=== PATIENT | female | born 1950 | race Caucasian/White ===

== ENCOUNTER 2018-06-20 07:36 | Inpatient (IN) | payer BC, MEDICARE ==
[~2018-06-20] VITALS: Ht 154.9 cm; Wt 66.8 kg
[~2018-06-20 07:36] MED LIST: FLONASE; LOPRESSOR; PRILOSEC; SYNTHROID
[2018-06-20] MEDS ORDERED: ASPIRIN 81 MG CHEW TAB PO ONE (08:00)
[2018-06-20 08:19] LABS: BASOPHILS % 0.2 % (0.0-1.0); EOSINOPHILS % 0.1 % (0.0-6.0); HEMOGLOBIN 14.4 g/dL (12.0-16.0); LYMPHOCYTES # (AUTO) 0.5 (1.0-3.2); LYMPHOCYTES % 3.1 % (18.0-39.1); MEAN CORPUSCULAR HEMOGLOBIN 30.6 pg (28-32); MEAN CORPUSCULAR HGB CONC 33.5 g/dL (31-35); MEAN CORPUSCULAR VOLUME 91.5 fL (81-99); MONOCYTES # (AUTO) 1.1 (0.2-0.8); MONOCYTES % 6.3 % (4.4-11.3); NEUTROPHILS # (AUTO) 15.7 (2.1-6.9); NEUTROPHILS % 89.9 % (38.7-80.0); PLATELET COUNT 213 x10e3/uL (140-360); RED CELL DISTRIBUTION WIDTH 13.7 % (11.7-14.4)
[2018-06-20 08:23] LABS: INR 1.02; PROTHROMBIN TIME 12.6 seconds (11.9-14.5)
[2018-06-20] MEDS ORDERED: MORPHINE SULFATE 2 MG/ML SYR IV STA (08:23)
[2018-06-20] MEDS ORDERED: ONDANSETRON HCL INJ 2 MG/ML VIAL IV STA (08:23)
[2018-06-20 08:24] LABS: PARTIAL THROMBOPLASTIN TIME 31.2 seconds (23.8-35.5)
[2018-06-20] MEDS ORDERED: MULTAQ400 MG PO (08:29)
[2018-06-20] MEDS ORDERED: OMEPRAZOLE40 MG PO (08:29)
[2018-06-20] MEDS ORDERED: LEVOTHYROXINE75 MCG PO (08:29)
[2018-06-20] MEDS ORDERED: TOPROL XL50 MG PO (08:29)
[2018-06-20 08:34] LABS: ALANINE AMINOTRANSFERASE 528 IU/L (0-55); ALBUMIN 4.4 g/dL (3.5-5.0); ALBUMIN/GLOBULIN RATIO 1.3 (0.8-2.0); ALKALINE PHOSPHATASE 142 IU/L (40-150); AMYLASE 2078 U/L (25-125); ANION GAP 17.8 mmol/L (8-16); BLOOD UREA NITROGEN 14 mg/dL (7-26); BUN/CREATININE RATIO 16 (6-25); CALCIUM 9.9 mg/dL (8.4-10.2); CARBON DIOXIDE 21 mmol/L (22-29); CHLORIDE 103 mmol/L (98-107); CREATINE KINASE 78 IU/L (29-168); CREATININE, SERUM 0.89 mg/dL (0.57-1.11); EST GLOMERULAR FILTRATION RATE > 60 ML/MIN (60-); GLUCOSE 118 mg/dL (74-118); POTASSIUM 3.8 mmol/L (3.5-5.1); SODIUM 138 mmol/L (136-145)
[2018-06-20 09:18] LABS: LIPASE > 4800 U/L (8-78)
[2018-06-20] MEDS ORDERED: SODIUM CHLORIDE 0.9% 1000ML 1,000 ML IV SCH ×2 (10:15→10:24)
[2018-06-20] MEDS: SODIUM CHLORIDE 0.9% 1000ML 1,000 ML IV SCH ×2 (10:53→19:45)
--- NOTE | 2018-06-20 11:59 | Diagnostic Imaging Report ---
EXAM: Right upper quadrant abdominal ultrasound INDICATION: Right upper quadrant pain COMPARISON: None. TECHNIQUE: Transverse and longitudinal images of the right upper quadrant abdomen were obtained FINDINGS: Liver: Size: Measures 16.1 cm in the right midclavicular line Appearance: Normal echogenicity, smooth contour Mass: No focal masses Gallbladder: No evidence of wall thickening, stone, or distension. Gallbladder wall measures 0.2 cm. Negative reported sonographic Ferreira's sign. Bile Ducts: Intrahepatic Ducts: No dilatation Extrahepatic Ducts: Common bile duct measures 1 cm. No visualized stone. Pancreas: The visualized pancreas appears edematous. Kidney: The right kidney measures 10.1 cm without evidence of hydronephrosis or stone. Vessels: Aorta: Visualized portions are normal Inferior Vena Cava: Visualized portions are normal Main Portal Vein: 1.2 Cm, normal size with hepatopetal flow. Free Fluid: No ascites or pleural effusion IMPRESSION: Edematous pancreas, consistent with clinical history of pancreatitis. Dilated common bile duct measuring up to 1 cm without evidence of stone. MRCP may be considered for further evaluation. Signed by: Dr. Jonathan Whatley MD on 06/20/2018 11:55 AM
[2018-06-20] MEDS ORDERED: HYDROMORPHONE 1MG/1ML INJ IV PRN (12:00)
--- NOTE | 2018-06-20 12:18 | Diagnostic Imaging Report ---
PROCEDURE: A single AP view of the chest. COMPARISON: None. INDICATIONS: STOMACH/EPIGASTRIC PAIN FINDINGS: Lines/tubes: None. Lungs: Low lung volumes. Patchy bibasilar opacities, left greater than right. No evidence of pulmonary edema. Pleura: There is no pleural effusion or pneumothorax. Heart and mediastinum: The cardiomediastinal silhouette is unremarkable. Bones: No acute bony abnormality. Upper abdomen: No evidence of free air under the hemidiaphragms. IMPRESSION: Low lung volumes with patchy bibasilar opacities, left greater than right likely atelectasis. Pneumonia is possible in the appropriate clinical setting. Dictated by: BRUNO SONG M.D. on 06/20/2018 at 8:57 Electronically approved by: BRUNO SONG M.D. on 06/20/2018 at 8:57
[2018-06-20 12:32] LABS: COLOR,URINE YELLOW (YELLOW)
[2018-06-20 12:33] LABS: BACTERIA,URINE FEW /HPF; BILIRUBIN,URINE NEGATIVE (NEGATIVE); CLARITY,URINE SL CLOUDY (CLEAR); EPITHELIAL CELLS,URINE RARE /LPF; KETONES,URINE NEGATIVE (NEGATIVE); LEUKOCYTE ESTERASE ,URINE NEGATIVE (NEGATIVE); NITRITE,URINE NEGATIVE (NEGATIVE); PROTEIN,URINE DIPSTICK TRACE (NEGATIVE); URINE UROBILINOGEN 1 mg/dL (0.2 - 1)
[2018-06-20 12:34] LABS: MUCUS,URINE MANY (RARE)
[2018-06-20] MEDS: HYDROMORPHONE 2MG/ML 2 MG/ML ML IV PRN ×2 (13:02→20:08)
[2018-06-20] MEDS: SODIUM CHLORIDE 0.45% 1,000 ML IV SCH ×2 (13:02→19:15)
[2018-06-20 13:10] VITALS: BP 159/89
--- NOTE | 2018-06-20 13:55 | History and Physical ---
CHIEF COMPLAINT: Abdominal pain going through to the back. HISTORY OF PRESENT ILLNESS: The patient has a history of cholelithiasis, atrial fibrillation, and thyroid disease. Yesterday, she developed some epigastric pain that radiated through to her back. She had some nausea. She did not describe any fevers. The patient came to the emergency department, was found to have an elevated amylase and an elevated lipase consistent with pancreatitis. She received some IV fluids along with some pain medication. PAST MEDICAL HISTORY 1. Possible atrial fibrillation. She follows with Dr. Linder of cardiology and he has been treating her with Muna. 2. Thyroid disease. PAST SURGICAL HISTORY: Noncontributory. SOCIAL HISTORY: No alcohol use. Patient is not a smoker. ALLERGIES: NO KNOWN DRUG ALLERGIES. FAMILY HISTORY: Noncontributory. REVIEW OF SYSTEMS: No fevers. No headache. No neck pain. The patient did have some epigastric pain and possibly some chest pain. She does not have dyspnea. There is associated nausea, but no vomiting. She does not have any leg edema. There are no neurological complaints. PHYSICAL EXAMINATION VITAL SIGNS: The patient is afebrile. The vital signs are stable. HEENT: Shows no facial swelling or erythema. The nasal mucosa is normal. The oropharynx is normal. LYMPHATIC: Shows no submandibular, cervical, or supraclavicular adenopathy. CARDIAC: Reveals a regular rate and rhythm with normal S1 and S2. There are no murmurs or rubs. RESPIRATORY: Auscultation of the lungs reveals clear breath sounds bilaterally. There is no wheezing. ABDOMEN: Mildly tender. There is no rebound or guarding. EXTREMITIES: Show no leg edema or calf tenderness. There is no cyanosis or clubbing. SKIN: Shows no rashes. NEUROLOGICAL: Shows no focal abnormalities. IMPRESSION 1. Acute pancreatitis with systemic inflammatory response syndrome. 2. Cholelithiasis. 3. Thyroid disease. 4. Atrial fibrillation by history. PLAN 1. Bowel rest. 2. IV hydration and pain medication as needed. 3. MRCP to rule out any retained stones. 4. GI and surgical consult. 5. Repeat laboratory values CBC, amylase, and lipase in the morning. Job#: [id number] GINA
[2018-06-20 16:00] VITALS: BP 167/93
[2018-06-20 20:00] VITALS: BP 128/68
[2018-06-20] MEDS: ONDANSETRON HCL INJ 2 MG/ML VIAL IV PRN (20:04)
[2018-06-20] MEDS: MEROPENEM 1 GM VIAL IV SCH (22:00)
[2018-06-20] MEDS ORDERED: MEROPENEM 1GM 100 ML IV SCH (22:00)
[2018-06-21] VITALS (7 sets, daily range): BP systolic 122–155; BP diastolic 63–84
[2018-06-21] MEDS: SODIUM CHLORIDE 0.45% 1,000 ML IV SCH ×5 (01:35→21:20)
[2018-06-21] MEDS: ONDANSETRON HCL INJ 2 MG/ML VIAL IV PRN ×3 (04:56→21:12)
[2018-06-21 05:06] LABS: BASOPHILS % 0.1 % (0.0-1.0); HEMATOCRIT 34.7 % (34.2-44.1); HEMOGLOBIN 11.8 g/dL (12.0-16.0); MEAN CORPUSCULAR HEMOGLOBIN 30.7 pg (28-32); MEAN CORPUSCULAR VOLUME 90.4 fL (81-99); MONOCYTES # (AUTO) 0.7 (0.2-0.8); NEUTROPHILS # (AUTO) 10.5 (2.1-6.9); NEUTROPHILS % 85.3 % (38.7-80.0); PLATELET COUNT 149 x10e3/uL (140-360); RED BLOOD COUNT 3.84 x10e6/uL (3.6-5.1); RED CELL DISTRIBUTION WIDTH 14.2 % (11.7-14.4)
[2018-06-21 05:27] LABS: ALANINE AMINOTRANSFERASE 389 IU/L (0-55); ALBUMIN 3.3 g/dL (3.5-5.0); ALBUMIN/GLOBULIN RATIO 1.3 (0.8-2.0); ALKALINE PHOSPHATASE 93 IU/L (40-150); AMYLASE 667 U/L (25-125); ANION GAP 14.6 mmol/L (8-16); BLOOD UREA NITROGEN 10 mg/dL (7-26); BUN/CREATININE RATIO 12 (6-25); CALCIUM 8.5 mg/dL (8.4-10.2); CARBON DIOXIDE 21 mmol/L (22-29); CHLORIDE 104 mmol/L (98-107); CREATININE, SERUM 0.86 mg/dL (0.57-1.11); EST GLOMERULAR FILTRATION RATE > 60 ML/MIN (60-); GLUCOSE 97 mg/dL (74-118); LIPASE 1143 U/L (8-78); POTASSIUM 3.6 mmol/L (3.5-5.1); SODIUM 136 mmol/L (136-145)
[2018-06-21] MEDS: MEROPENEM 1 GM VIAL IV SCH ×3 (05:52→21:12)
[2018-06-21] MEDS ORDERED: VANCOMYCIN 1GM/NS 250 ML 250 ML IV ONE (08:00)
[2018-06-21] MEDS: PANTOPRAZOLE 40 MG 10ML VIAL IV SCH (08:11)
[2018-06-21] MEDS: LEVOTHYROXINE SODIUM 100 MCG/VIAL IV SCH (08:11)
[2018-06-21] MEDS ORDERED: PANTOPRAZOLE 40 MG 10ML VIAL IV SCH (09:00)
--- NOTE | 2018-06-21 09:29 | Diagnostic Imaging Report ---
PROCEDURE: X-RAY CHEST, TWO VIEWS COMPARISON: 06/20/2018. INDICATIONS: BIBASILAR INFECTION FINDINGS: Lungs are well-inflated. Interval improvement in aeration of the left lung base relative to 06/20/2018. Persistent bibasilar subsegmental atelectasis right worse than left. No new consolidation. Stable cardiomediastinal contour. No acute osseous abnormality. CONCLUSION: Improved aeration of the left lung base relative to 06/20/2018. Otherwise stable appearance of the chest. Dictated by: Jesus Nguyen M.D. on 06/21/2018 at 9:36 Electronically approved by: Jesus Nguyen M.D. on 06/21/2018 at 9:36
[2018-06-21] MEDS ORDERED: GADOBENATE DIMEGLUMINE 1 ML IV ONE (10:34)
[2018-06-21] MEDS: AZITHROMYCIN 500MG/NS 250 ML 250 ML IV SCH (10:44)
[2018-06-21] MEDS ORDERED: AZTREONAM 1 GM/NS 50 ML 50 ML IV SCH (14:00)
--- NOTE | 2018-06-21 14:07 | Diagnostic Imaging Report ---
EXAM: MR Abdomen WITHOUT and WITH Contrast Magnetic Resonance Cholangiopancreatography (M.R.C.P.) INDICATION: \S\? gallstone pancreatitis COMPARISON: None. TECHNIQUE: Multiplanar and multisequence imaging was performed of the abdomen without and with contrast. T1-weighted, T2-weighted images, T1-weighted in and [id number], and Diffusion weighted images. Dynamic, post gadolinium T1-weighted spoiled gradient echo scans. M.R.C.P. Technique: Multiplanar, multisequence MRCP was performed IV Contrast: 13 mL of MultiHance gadolinium Oral Contrast: None Medications: None COMPLICATIONS: None FINDINGS: LOWER THORAX: Trace right pleural effusion. HEPATOBILIARY: Diffuse signal loss of the liver on out of phase images compatible with steatosis. No focal hepatic lesions. Common bile duct measures 1 cm proximally and tapers distally toward the ampulla. No filling defects identified. GALLBLADDER: No stones. Fluid fluid level within the gallbladder likely representing sludge. No wall thickening. Mild pericholecystic fluid likely related to trace ascites. SPLEEN: No splenomegaly. PANCREAS: Minimal peripancreatic stranding. No evidence of necrosis or peripancreatic fluid collections. No focal masses or ductal dilatation. ADRENALS: No adrenal nodules KIDNEYS/URETERS: Kidneys enhance symmetrically. No hydronephrosis. A few nonenhancing foci kidneys are without T2 signal abnormalities, likely representing cysts. No solid mass lesions. GI TRACT: No abnormal distention, wall thickening, or evidence of bowel obstruction. Scattered colonic diverticula. LYMPH NODES: No lymphadenopathy. VESSELS: Unremarkable. Portal, splenic, and superior mesenteric veins are patent. PERITONEUM / RETROPERITONEUM: No free air. Trace ascites. BONES: Unremarkable. SOFT TISSUES: Unremarkable. IMPRESSION: 1. Dilated CBD without evidence of choledocholithiasis or obstructing mass. 2. Mild gallbladder sludge without stones. 3. Minimal peripancreatic stranding in keeping with pancreatitis. No peripancreatic fluid collections or pancreatic necrosis. 4. Hepatic steatosis. 5. Trace ascites and right pleural effusion. Signed by: DR. Mani Quinonez MD on 06/21/2018 2:03 PM
--- NOTE | 2018-06-21 15:11 | Progress Note ---
DATE: GASTROENTEROLOGY PROGRESS NOTE SUBJECTIVE: Ms. Delcid today continues to improve. She is in bed, comfortable, no pain. She does not require any pain medication. She had a little bit of nausea and acid reflux but no other complaint. OBJECTIVE: On exam her abdomen is soft, no acute sign, minimally tender in the right upper quadrant. LAB TESTS: Total bilirubin today is 3, AST down to 284 from 738, ALT down to 389 from 578, amylase down to 660 from 2000, lipase down to 1100 from 4800. Her calcium 8.5, BUN 10, creatinine 0.86, sodium 136, potassium 3.6. Her hemoglobin and hematocrit normal, white cell count down to 12,000 from 17,000. She continues to be on meropenem antibiotic. Temperature 99, pulse 78, blood pressure 125/77. Her MR cholangiogram, MRCP showed no obstructive lesion in the common bile duct. PLAN: Continue conservative care. As long as the lab continues to improve, there is no need for an ERCP. Will continue her n.p.o. for now. We may start liquid diet tomorrow. Job#: [id number] SISI
[2018-06-22] VITALS (9 sets, daily range): BP systolic 133–162; BP diastolic 75–85
[2018-06-22] MEDS: SODIUM CHLORIDE 0.45% 1,000 ML IV SCH ×4 (01:04→23:49)
[2018-06-22 05:02] LABS: BASOPHILS % 0.2 % (0.0-1.0); EOSINOPHILS % 0.3 % (0.0-6.0); HEMATOCRIT 34.8 % (34.2-44.1); HEMOGLOBIN 11.7 g/dL (12.0-16.0); LYMPHOCYTES # (AUTO) 1.2 (1.0-3.2); LYMPHOCYTES % 11.9 % (18.0-39.1); MEAN CORPUSCULAR HEMOGLOBIN 30.5 pg (28-32); MEAN CORPUSCULAR HGB CONC 33.6 g/dL (31-35); MEAN CORPUSCULAR VOLUME 90.9 fL (81-99); MONOCYTES # (AUTO) 0.8 (0.2-0.8); MONOCYTES % 7.3 % (4.4-11.3); NEUTROPHILS # (AUTO) 8.3 (2.1-6.9); NEUTROPHILS % 79.9 % (38.7-80.0); PLATELET COUNT 160 x10e3/uL (140-360); RED BLOOD COUNT 3.83 x10e6/uL (3.6-5.1); RED CELL DISTRIBUTION WIDTH 14.1 % (11.7-14.4)
[2018-06-22 05:39] LABS: ALANINE AMINOTRANSFERASE 246 IU/L (0-55); ALBUMIN 3.3 g/dL (3.5-5.0); ALBUMIN/GLOBULIN RATIO 1.1 (0.8-2.0); ALKALINE PHOSPHATASE 98 IU/L (40-150); AMYLASE 225 U/L (25-125); ANION GAP 15.4 mmol/L (8-16); BLOOD UREA NITROGEN 8 mg/dL (7-26); BUN/CREATININE RATIO 11 (6-25); CALCIUM 9.3 mg/dL (8.4-10.2); CARBON DIOXIDE 21 mmol/L (22-29); CHLORIDE 105 mmol/L (98-107); CREATININE, SERUM 0.76 mg/dL (0.57-1.11); EST GLOMERULAR FILTRATION RATE > 60 ML/MIN (60-); GLUCOSE 81 mg/dL (74-118); LIPASE 353 U/L (8-78); POTASSIUM 3.4 mmol/L (3.5-5.1); SODIUM 138 mmol/L (136-145)
[2018-06-22] MEDS: MEROPENEM 1 GM VIAL IV SCH ×3 (05:45→21:17)
[2018-06-22] MEDS: ONDANSETRON HCL INJ 2 MG/ML VIAL IV PRN ×3 (05:47→21:17)
--- NOTE | 2018-06-22 08:26 | Progress Note ---
DATE: SUBJECTIVE: The patient feels better. She has less abdominal pain. She has no nausea or vomiting. Her T-max was 99.7. PHYSICAL EXAMINATION: VITAL SIGNS: Stable. HEENT: Shows no facial swelling or erythema. The nasal mucosa is normal. The oropharynx is normal. LYMPHATIC: Showed no submandibular, cervical, or supraclavicular adenopathy. CARDIAC: Reveals a regular rate and rhythm with a normal S1 and S2. CHEST: Auscultation of lungs reveals clear breath sounds bilaterally. There is no wheezing. ABDOMEN: Soft and not tender. There is no rebound, no guarding. IMPRESSION: 1. Acute pancreatitis. 2. Cholelithiasis. 3. Bilateral pulmonary infiltrates. 4. Hypokalemia. PLAN: 1. Patient will have a repeat chest x-ray today to follow up the infiltrates; these are most probably noninfectious and related to the pancreatitis. 2. Once her fever resolves and her cultures return, then we can stop the antibiotics. 3. Continue bowel rest and IV fluids. 4. Gastroenterology to opine as to whether an ERCP will be required prior to cholecystectomy. 5. Repeat the laboratory values tomorrow. Job#: [id number]
[2018-06-22] MEDS: AZITHROMYCIN 500MG/NS 250 ML 250 ML IV SCH (08:34)
[2018-06-22] MEDS: LEVOTHYROXINE SODIUM 100 MCG/VIAL IV SCH (08:34)
[2018-06-22] MEDS: PANTOPRAZOLE 40 MG 10ML VIAL IV SCH (08:34)
--- NOTE | 2018-06-22 11:35 | Diagnostic Imaging Report ---
EXAMINATION: PA and lateral views of the chest. COMPARISON: None CLINICAL HISTORY: Pulmonary infiltrates DISCUSSION: Lines/tubes: None. Lungs: Lingular and bilateral lower lung atelectasis. No consolidative pneumonia. Pleura: Trace effusions. Heart and mediastinum: The cardiomediastinal silhouette is normal. Bones and soft tissues: No acute bony abnormalities. IMPRESSION: Lower lung atelectasis and trace effusions. Signed by: Dr. Terry Fraga M.D. on 06/22/2018 11:31 AM
[2018-06-23] VITALS (9 sets, daily range): BP systolic 127–165; BP diastolic 73–85
[2018-06-23 05:06] LABS: BASOPHILS % 0.2 % (0.0-1.0); EOSINOPHILS % 0.3 % (0.0-6.0); HEMATOCRIT 35.5 % (34.2-44.1); HEMOGLOBIN 11.9 g/dL (12.0-16.0); LYMPHOCYTES # (AUTO) 1.3 (1.0-3.2); LYMPHOCYTES % 13.2 % (18.0-39.1); MEAN CORPUSCULAR HEMOGLOBIN 30.7 pg (28-32); MEAN CORPUSCULAR HGB CONC 33.5 g/dL (31-35); MEAN CORPUSCULAR VOLUME 91.5 fL (81-99); MONOCYTES # (AUTO) 0.9 (0.2-0.8); MONOCYTES % 8.9 % (4.4-11.3); NEUTROPHILS # (AUTO) 7.6 (2.1-6.9); NEUTROPHILS % 76.8 % (38.7-80.0); PLATELET COUNT 178 x10e3/uL (140-360); RED BLOOD COUNT 3.88 x10e6/uL (3.6-5.1); RED CELL DISTRIBUTION WIDTH 13.7 % (11.7-14.4)
[2018-06-23 05:34] LABS: ALANINE AMINOTRANSFERASE 165 IU/L (0-55); ALBUMIN 3.3 g/dL (3.5-5.0); ALKALINE PHOSPHATASE 94 IU/L (40-150); AMYLASE 102 U/L (25-125); ANION GAP 17.9 mmol/L (8-16); BLOOD UREA NITROGEN 9 mg/dL (7-26); BUN/CREATININE RATIO 12 (6-25); CALCIUM 9.1 mg/dL (8.4-10.2); CARBON DIOXIDE 16 mmol/L (22-29); CHLORIDE 105 mmol/L (98-107); CREATININE, SERUM 0.73 mg/dL (0.57-1.11); EST GLOMERULAR FILTRATION RATE > 60 ML/MIN (60-); GLUCOSE 67 mg/dL (74-118); LIPASE 157 U/L (8-78); POTASSIUM 3.9 mmol/L (3.5-5.1); SODIUM 135 mmol/L (136-145)
[2018-06-23] MEDS: ONDANSETRON HCL INJ 2 MG/ML VIAL IV PRN (05:59)
[2018-06-23] MEDS: MEROPENEM 1 GM VIAL IV SCH (05:59)
[2018-06-23] MEDS: SODIUM CHLORIDE 0.45% 1,000 ML IV SCH ×3 (06:36→23:50)
[2018-06-23] MEDS: LEVOTHYROXINE SODIUM 100 MCG/VIAL IV SCH (09:06)
[2018-06-23] MEDS: PANTOPRAZOLE 40 MG 10ML VIAL IV SCH (09:06)
[2018-06-23 15:52] LABS: CHOL/HDL RATIO 2.7 (3.0-3.6)
--- NOTE | 2018-06-23 16:24 | Consultation ---
DATE OF CONSULTATION: June 20, 2018 Ms. Delcid is a 67-year-old lady with no significant past medical history. She was told years ago that she had gallstone disease. Also, carried in the past atrial fibrillation and thyroid disease. The day before admission she presented with epigastric pain, severe and radiated to her back with some nausea and brought to the hospital. She was found to have increase in liver enzymes, increase in pancreatic enzymes and admitted with acute pancreatitis. Since admission, she was placed on n.p.o. status with pain medication. She has been stable. Her pain is better without requiring any narcotics or sedatives. ALLERGIES: SHE IS ALLERGIC TO AMOXICILLIN, ATENOLOL, LATEX, LEVOFLOXACIN, METOPROLOL, NEBIVOLOL, CARAFATE, PEANUTS, SULFIDE, AND AZELASTINE. SOCIAL HISTORY: She does not smoke or drink. PHYSICAL EXAMINATION VITALS: Blood pressure 167/96, pulse 81, temperature 97. GENERAL: She is awake, alert and oriented. HEENT: Normal sclerae. NECK: Supple. LUNGS: Clear to auscultation. HEART: Irregularly irregular rhythm. ABDOMEN: Minimal tender in the right quadrant. No acute signs. Bowel sounds present. EXTREMITIES: No edema. DYE LINE OPERATOR: Motor function grossly intact. CURRENT MEDICATIONS: Dilaudid, Protonix, Zofran, and Synthroid. Her white cell count is 17, hemoglobin 14, hematocrit 43. Total bilirubin 2.3, AST 738, ALT 528, alk phos normal. Amylase 200 and lipase more than 4000. IMPRESSION: Acute pancreatitis, more likely caused by gallstone disease. She is doing fine on conservative management. My plan is to schedule for MRI cholangiogram. Start on antibiotics. She had ultrasound in the emergency room, which was unremarkable. Will see based on the results of the MRI cholangiogram, and will decide if she needs an endoscopic retrograde cholangiopancreatography. Dr. Lloyd Casey is under her care. Job#: [id number] NANCY
--- NOTE | 2018-06-23 16:38 | Progress Note ---
DATE: June 22, 2018 Ms. Delcid is doing marvelously well. She is completely asymptomatic and tolerating her liquid diet well. She is asking when she can go home. PHYSICAL EXAMINATION VITALS: Temperature 98, blood pressure 147/85. White cell count 9, hemoglobin 12, hematocrit 35, and platelets 178,000. Amylase normal today. Lipase 157. BUN and creatinine normal. Sodium and potassium normal. Total bilirubin 1.6, AST 52, ALT 165. PLAN: The patient can go home. I am planning to repeat her ultrasound of the gallbladder and HIDA scan as an outpatient. Also, I ordered today fasting lipid and MIKE level. I would like to mention that her calcium is normal. Job#: [id number] NANCY
[2018-06-24 04:00] VITALS: BP 145/71
[2018-06-24 05:06] LABS: BASOPHILS % 0.3 % (0.0-1.0); EOSINOPHILS # (AUTO) 0.1 (0.0-0.4); EOSINOPHILS % 0.7 % (0.0-6.0); HEMATOCRIT 35.1 % (34.2-44.1); HEMOGLOBIN 12.3 g/dL (12.0-16.0); LYMPHOCYTES # (AUTO) 1.5 (1.0-3.2); LYMPHOCYTES % 16.1 % (18.0-39.1); MEAN CORPUSCULAR HEMOGLOBIN 31.1 pg (28-32); MEAN CORPUSCULAR VOLUME 88.6 fL (81-99); MONOCYTES % 10.5 % (4.4-11.3); NEUTROPHILS # (AUTO) 6.8 (2.1-6.9); NEUTROPHILS % 71.8 % (38.7-80.0); PLATELET COUNT 198 x10e3/uL (140-360); RED BLOOD COUNT 3.96 x10e6/uL (3.6-5.1); RED CELL DISTRIBUTION WIDTH 13.5 % (11.7-14.4)
[2018-06-24 05:31] LABS: ALANINE AMINOTRANSFERASE 116 IU/L (0-55); ALBUMIN 3.4 g/dL (3.5-5.0); ALBUMIN/GLOBULIN RATIO 1.1 (0.8-2.0); ALKALINE PHOSPHATASE 96 IU/L (40-150); AMYLASE 83 U/L (25-125); ANION GAP 18.5 mmol/L (8-16); BLOOD UREA NITROGEN 8 mg/dL (7-26); BUN/CREATININE RATIO 11 (6-25); CALCIUM 9.2 mg/dL (8.4-10.2); CARBON DIOXIDE 16 mmol/L (22-29); CHLORIDE 103 mmol/L (98-107); CREATININE, SERUM 0.71 mg/dL (0.57-1.11); EST GLOMERULAR FILTRATION RATE > 60 ML/MIN (60-); GLUCOSE 73 mg/dL (74-118); LIPASE 138 U/L (8-78); POTASSIUM 3.5 mmol/L (3.5-5.1); SODIUM 134 mmol/L (136-145)
[2018-06-24] MEDS ORDERED: LEVOTHYROXINE SODIUM 75 MCG TAB PO SCH (06:00)
[2018-06-24 08:00] VITALS: BP 139/81
[2018-06-24] MEDS: PANTOPRAZOLE 40 MG 10ML VIAL IV SCH (08:22)
[2018-06-24] MEDS ORDERED: DRONEDARONE 400 MG TAB PO SCH (09:00)
[2018-06-24 09:29] VITALS: BP 145/71
[2018-06-24] MEDS: SODIUM CHLORIDE 0.45% 1,000 ML IV SCH (09:32)
--- NOTE | 2018-06-24 13:14 | Progress Note ---
DATE: SUBJECTIVE: Today, she is doing very well, completely asymptomatic. Tolerated her liquid diet well. Has no GI complaint of any sort. OBJECTIVE: On exam, temperature is 98. Hemodynamically stable. LAB TESTS: Her bilirubin down to 1.4, ALT 116, alk phos normal, AST normal. CBC normal. Her fasting lipid unremarkable. MIKE still pending. We advanced her diet today to soft and regular diet and to be discharged home, to follow as an outpatient. PLAN: My plan for her as an outpatient: 1. To repeat ultrasound of the gallbladder. 2. Obtain HIDA scan. 3. To check the MIKE level. Job#: [id number]
--- NOTE | 2018-06-24 15:42 | Discharge Summary ---
DISCHARGE DIAGNOSES 1. Pancreatitis with systemic inflammatory response syndrome. 2. Hypothyroidism. CONSULTING PHYSICIANS 1. Dr. Lloyd Casey. 2. Dr. Jerrod Berry RADIOGRAPHIC DATA 1. CT of the abdomen and pelvis showed some inflammatory changes consistent with pancreatitis with no necrosis. There was no pseudocyst formation. 2. MRCP showed dilated pancreatic duct but no visible stones. 3. Ultrasound of the gallbladder showed no cholelithiasis. HISTORY OF PRESENT ILLNESS: The patient is a 67-year-old woman. She has a history of atrial fibrillation and thyroid disease. She came in complaining of some epigastric pain that radiated through to her back. She had some associated nausea, but no vomiting. HOSPITAL COURSE: The patient was admitted. Her amylase and lipase were elevated. They were very high, and she was found to have acute pancreatitis. She was started on IV hydration along with pain medication and bowel rest. On day #2, she developed some fevers. She required antibiotics. She was pancultured. She had a CT scan of the abdomen and pelvis that showed no necrosis or pseudocyst formation. The antibiotics were stopped once the fever resolved. The patient's pancreatic enzymes gradually returned to normal. Her abdominal pain subsided. She was able to tolerate a regular diet. The case was discussed with gastroenterology and general surgery. Because the ultrasound showed no gallstones, the general surgeon felt this was not gallstone pancreatitis. He recommend against a cholecystectomy. DISPOSITION: The patient will be discharged home. She will follow up with Dr. Berry in 1 to 2 weeks. LUCRECIA SAENZ MD Job#: [id number]
--- NOTE | 2018-06-25 14:38 | Progress Note ---
DATE: I spoke with Dr. Aguillon about Ms. Delcid. As of now, she is asymptomatic. Her lab tests continue to improve. Most of her liver functions are almost back to normal. She is tolerating a regular diet well. According to Dr. Lloyd Casey, her ultrasound did not show any gallstone, and her MRI cholangiogram did not show any stone in the common bile duct. He does not feel comfortable removing her gallbladder. He is not quite sure about the cause of her pancreatitis. As far as the cause of her pancreatitis, most probably it is a gallstone pancreatitis. The patient could have passed a small stone. Her fasting lipid is normal. Her calcium is normal. There is no family history of chronic pancreatitis. She denied taking any alcohol regularly. For now, gallstone pancreatitis can be a possible diagnosis. My plan is to repeat her ultrasound as an outpatient and order a HIDA scan as an outpatient and review all the list of her medications to make sure she is not taking any medication contributing to causing pancreatitis. Job#: [id number]
== END 2018-06-24 15:13 | disposition home or self-care (01) | DRG 440 ==
LOC: ER 07:36 → ERHOLD 10:31 → MED/SURG2 12:43
PROVIDERS: ADMIT Internal Medicine Critical Care Medicine; ATTEND Internal Medicine Critical Care Medicine
DX: K85.90 Acute pancreatitis without necrosis or infection, unspecified (principal); R91.8 Other nonspecific abnormal finding of lung field; E87.6 Hypokalemia; I48.91 Unspecified atrial fibrillation; Z88.2 Allergy status to sulfonamides; Z88.8 Allergy status to other drugs, medicaments and biological substances; Z88.1 Allergy status to other antibiotic agents; Z91.040 Latex allergy status; Z91.010 Allergy to peanuts; E03.9 Hypothyroidism, unspecified
CPT/HCPCS: 36415; 71045; 71046; 74183; 76705; 80053; 80061; 81001; 82150; 82550; 82553; 83690; 83735; 83880; 84484; 85025; 85610; 85730; 86039; 87040; 93005; 96361; 99284; J0456; J2185; J2270; J2405; J3370; J7030